=== PATIENT | female | born 1990 ===

== ENCOUNTER 2024-10-18 11:54 | Outpatient (RCR) | payer MEDICARE, MEDICAID, SELFPAY | END 2024-10-19 08:35 | disposition home or self-care (01) | LOC: OT 11:54 | PROVIDERS: PCP Podiatrist Foot & Ankle Surgery; Visit Provider Podiatrist Foot & Ankle Surgery | DX: I89.0 Lymphedema, not elsewhere classified (principal); R60.9 Edema, unspecified | CPT/HCPCS: 97140; 97167; 97530 ==